=== PATIENT | male | born 1965 | race Caucasian/White ===

== ENCOUNTER 2023-07-21 04:32 | Emergency (ER) | payer OTHER, SELFPAY ==
[2023-07-21 04:34] VITALS: BP 137/77
[2023-07-21 04:56] VITALS: BMI 28.7
[2023-07-21 05:09] LABS: Urine Albumin 1+ (Neg - Trace); Urine Bilirubin Negative (Negative); Urine Character Slightly Cloudy (Clear); Urine Color Brown; Urine Glucose Negative (Negative); Urine Ketone Negative (Negative); Urine Leukocyte Trace (Negative); Urine Nitrite Negative (Negative); Urine Occult Blood 4+ (Negative); Urine Specific Gravity 1.025 (<1.030); Urine Urobilinogen Negative (Neg - 1+)
--- NOTE | 2023-07-21 05:28 | ED.GENMED ---
Addendum entered and electronically signed by ABBI Delgado 07/21/23 10:54:
Pharmacy called pain medication was initially rejected will resend prescription for 10 tablets of Percocet
Original Note:
History of Present Illness
<KELLI Saldaña - Last Filed: 07/21/23 05:43>
General
Chief Complaint: Male Genito-Urinary Symptoms
Source: patient
Exam Limitations: none
Time Seen by Provider: 07/21/23 05:16
Nursing documentation reviewed up to this point in time: agreed with
Travel History
Have you had any contact with someone who has COVID-19?: No
Do you have any symptoms of coronavirus? Fever > 100 degrees, chills, cough, shortness of breath, sore throat, loss of taste or smell, muscle aches, or headache?: No
History of Present Illness
History of Present Illness:
58 y/o M presents to ED complaining of abdominal pain and hematuria. Patient states he woke up at 0100 due to right sided abdominal pain. He states the pain was 8/10 at the time and was radiating to his groin and flank. He states the pain got worse
around 0300. He had an episode of hematuria at 0300. He denies dysuria but states the urine was brown/red and cloudy. He also reports dry heaving around that time. He did not vomit. He reports the pain in his abdomen is now constant and currently
4/10. Patient is having normal BM, last one was yesterday afternoon. He reports having chile for dinner around 1800. Denies vomiting, diarrhea, constipation, headache, cough, congestion, fever or chills. He has no history of GI issues. No recent
surgeries. Patient still have his appendix. Patient had inguinal hernia repair 1 year ago. Patient also has rash on his face that noticed today. Patient does report he has sensitive skin. No reported allergies.
If applicable-neuro sx onset
Onset of symptoms known: Yes
Date of onset of symptoms: 07/21/23
Time of onset of symptoms: 01:00
Past History
<Michellecuong VegasKELLI sal - Last Filed: 07/21/23 05:43>
Past History
ED Past Medical History: Asthma and Other (Left groin hernia); Negative HTN, Hypercholesterolemia or NIDDM
ED Past Surgical History: None
Social History
Tobacco: Former smoker
Alcohol: None
Personal:
Living: with family
Review of Systems
<KELLI Saldaña - Last Filed: 07/21/23 05:43>
Review of Systems
Allergies reviewed?: Yes
All Other Systems: ROS reviewed and negative except as documented in HPI and ROS
Constitutional: Reports no symptoms
EENT: Reports no symptoms
Respiratory: Reports no symptoms
Cardiac: Reports no symptoms
ABD/GI: Reports abdominal pain and nausea
: Reports flank pain, dark urine and other (groin pain)
Musculoskeletal: Reports no symptoms
Skin: Reports no symptoms
Neurological: Reports no symptoms
Endocrine: Reports no symptoms
Hematologic/Lymphatic: Reports no symptoms
Psychiatric: Reports no symptoms
Phy Exam
<MichelleKELLI Mcneil - Last Filed: 07/21/23 05:43>
General Physical Exam
General Presentation: well appearing and no apparent distress
General age: appears stated age
General Skin: warm and dry
General Habitus: normal
General Mental: alert
General Hydration: appears well hydrated
ENT Exam
ENT Exam: EOMI, TM's normal and pharynx normal
Eye Exam
Eye Exam: PERRL, EOMI and conjunctiva normal
Cardiovascular Exam
Cardiovascular Exam: regular rate/rhythm, no edema, no gallop, no murmur and normal peripheral pulses
Pulmonary Exam
Pulmonary Exam: lungs clear, no respiratory distress, no rales, no crackles and no rhonchi
Gastrointestinal Exam
Gastrointestinal Exam: normal bowel sounds, non tender, soft, non distended and no cva tenderness
Neurological Exam
Neurological Exam: alert and oriented x3
Skin Exam
Skin Exam: normal color and warm/dry
Psychiatric Exam
Psychiatric Exam: normal mood/affect
Course
<KELLI Saldaña - Last Filed: 07/21/23 05:43>
Orders/Labs/Results
Orders:
Orders
07/21/23 04:54
Urine Microscopic Reflex Cult Urgent
Urine Reflex Culture from UA [Urinalysis Reflex To Culture] Urgent
Date Specimen was Collected: 07/21/23
Time Specimen was Collected: 04:53
Urine Culture Urgent
SAVI Source: U
Specimen Description:
Date Specimen was Collected: 07/21/23
Time Specimen was Collected: 04:53
07/21/23 05:16
CT Abd/pel Without Iv Or Oral Urgent
Comment:
Reason For Exam: right flank pain, hematuria
07/21/23 06:02
Complete Blood Count/With Diff Urgent
Comprehensive Metabolic Panel Urgent
Abnormal Lab Results
07/21/23 07/21/23
04:54 06:02
RBC 4.37 L 10^6/uL
(4.70-6.10)
MCH 32.7 H pg
(27.0-31.0)
Absolute Neuts (auto) 7.1 H 10^3/uL
(1.4-6.5)
Neutrophils % 76.6 H %
(42.2-75.2)
Lymphocytes % 15.2 L %
(20.5-51.1)
Chloride 110 H mmol/L
(98-107)
Glucose 105 H mg/dl
(70-99)
Total Bilirubin 1.6 H mg/dl
(0.2-1.3)
Ur Occult Blood Reflex 4+ A
(Negative)
Leukocyte Esterase Rfl Trace A
(Negative)
Urine RBC >100 A /HPF
(0-2)
Urine Bacteria (Reflex) Many A
(Negative)
Urine Albumin (Reflex) 1+ A
(Neg - Trace)
07/21/23 06:02
07/21/23 06:02
Vital Signs
Initial and Last Documented VS:
Initial Vital Signs
Temp Pulse Resp BP Pulse Ox
98.2 F 57 16 137/77 98
07/21/23 04:34 07/21/23 04:34 07/21/23 04:34 07/21/23 04:34 07/21/23 04:34
Last Documented Vital Signs
Temp Pulse Resp BP Pulse Ox
98.2 F 57 16 137/77 98
07/21/23 04:34 07/21/23 04:34 07/21/23 04:34 07/21/23 04:34 07/21/23 04:34
<Thuy Becerra, DO - Last Filed: 07/21/23 07:40>
Orders/Labs/Results
Orders:
Orders
07/21/23 04:54
Urine Microscopic Reflex Cult Urgent
Urine Reflex Culture from UA [Urinalysis Reflex To Culture] Urgent
Date Specimen was Collected: 07/21/23
Time Specimen was Collected: 04:53
Urine Culture Urgent
SAVI Source: U
Specimen Description:
Date Specimen was Collected: 07/21/23
Time Specimen was Collected: 04:53
07/21/23 05:16
CT Abd/pel Without Iv Or Oral Urgent
Comment:
Reason For Exam: right flank pain, hematuria
07/21/23 06:02
Complete Blood Count/With Diff Urgent
Comprehensive Metabolic Panel Urgent
Abnormal Lab Results
07/21/23 07/21/23
04:54 06:02
RBC 4.37 L 10^6/uL
(4.70-6.10)
MCH 32.7 H pg
(27.0-31.0)
Absolute Neuts (auto) 7.1 H 10^3/uL
(1.4-6.5)
Neutrophils % 76.6 H %
(42.2-75.2)
Lymphocytes % 15.2 L %
(20.5-51.1)
Chloride 110 H mmol/L
(98-107)
Glucose 105 H mg/dl
(70-99)
Total Bilirubin 1.6 H mg/dl
(0.2-1.3)
Ur Occult Blood Reflex 4+ A
(Negative)
Leukocyte Esterase Rfl Trace A
(Negative)
Urine RBC >100 A /HPF
(0-2)
Urine Bacteria (Reflex) Many A
(Negative)
Urine Albumin (Reflex) 1+ A
(Neg - Trace)
07/21/23 06:02
07/21/23 06:02
Vital Signs
Initial and Last Documented VS:
Initial Vital Signs
Temp Pulse Resp BP Pulse Ox
98.2 F 57 16 137/77 98
07/21/23 04:34 07/21/23 04:34 07/21/23 04:34 07/21/23 04:34 07/21/23 04:34
Last Documented Vital Signs
Temp Pulse Resp BP Pulse Ox
98.2 F 57 16 137/77 98
07/21/23 04:34 07/21/23 04:34 07/21/23 04:34 07/21/23 04:34 07/21/23 04:34
<KELLI Saldaña - Last Filed: 07/21/23 05:43>
MDM/Problems Addressed
Differential Diagnosis Includes:
Nephrolithiasis
Pyelonephritis
UTI
Appendicitis
MDM/Problems Addressed:
58 y/o M with R sided flank pain radiating to groin and back, associated nausea and hematuria. Patient symptoms may be due to kidney stone given presentation of hematuria and flank pain radiating to groin. Pyelo/UTI considered given hematuria and
abdominal pain however patient is not having dysuria or suprapubic tenderness. Appendicitis considered given RLQ pain and nausea.
<Thuy Becerra DO - Last Filed: 07/21/23 07:40>
*Radiology
Radiology exam reviewed: radiology read reviewed
*Pulse Oximetry
Patient hypoxic: no
*Critical Care Note
Total Time (30-74mins, 75-104mins- exclusive of procedures): Not Applicable
ED Attending Note
<KELLI Saldaña - Last Filed: 07/21/23 05:43>
-
Portions of this chart may have been created with voice recognition software.� Occasional wrong word or��sound alike� substitutions may have occurred due to the inherent limitations of voice recognition software.
<Thuy Becerra DO - Last Filed: 07/21/23 07:40>
ED Attending Note
Patient seen and examined by attending physician: Yes
I performed the substantive portion of visit, reviewed & personally made and approve the management plan that is documented in note by myself or ALVARO.: Yes
I performed a history and physical exam of patient and discussed management with resident, I reviewed resident's note and agree with documented findings and plan of care.: Yes
ED Attending Note:
This is a 58-year-old gentleman who resides at home with his . He has history of asthma, osteoarthritis who complains of abrupt onset of right-sided abdominal pain, right flank pain radiating to his right lower quadrant and into his right
testicle that woke him from sleep around 1 AM. Pain was at its worst around 3 AM accompanied with nausea, dry heaves, diaphoresis, restlessness. He admits that at 1 point he was 'rolling around on the bathroom floor'
No history of similar episodes in the past and no improvement with taking Gas-X as well as Pepto-Bismol at home but pain is moderately improved since arrival to the ED. He does admit to an episode of gross hematuria earlier this morning which
prompted ED evaluation. He denies dysuria, denies urinary frequency nor urgency. He denies fever nor chills.
Nausea is currently subsided. He denies diarrhea or constipation.
He has no prior history of kidney stones, no history of UTI nor pyelonephritis.
Prior left inguinal hernia repair. No other abdominal surgical procedures.
GENERAL: 58-year-old gentleman appears his stated age, awake and alert, pleasant, appears in no acute distress. is accompanying.
EYE: anicteric
NECK: Supple, nontender, no meningismus, no significant adenopathy.
ENT: oral mucosa is moist. No rhinorrhea.
CARDIAC: Regular rate and rhythm. no murmur.
LUNGS: Clear breath sounds bilaterally, no acute respiratory distress, no wheezes/rales/rhonchi
ABDOMEN: Soft, nondistended, without focal tenderness, no r/g, no cvat. normoactive BS.
NEUROLOGICAL: Alert and oriented x3, no focal neuro deficits. Gait is steady.
SKIN: Warm and dry, normal color, skin intact. No rash.
MUSCULOSKELETAL: No C/C/E. peripheral pulses are full and equal b/l. No palpable tenderness.
PSYCH: Normal and appropriate interaction.
History and exam most concerning for acute renal colic, concern for ureteric stone. Other consideration is UTI, pyelonephritis.
Patient has been offered pain medication which she currently declines.
Will check CT abdomen and pelvis. Will check laboratory studies as well as urinalysis with reflex to culture.
07/21/2023 0721 AM
Patient remains comfortable, for the most part pain-free but does admit to intermittent mild twinges of pain. Has not required pain medication in the ED. however due to these intermittent twinges will give an IV dose of Toradol now.
CAT scan shows a 2.5 mm stone proximal right ureter with minimal hydronephrosis. There are additional small nonobstructing stones bilaterally.
Labs are essentially unremarkable.
Normal renal function.
Minimally elevated bilirubin 1.6 but all other LFTs within normal limits. CAT scan does note mild diffuse hepatic steatosis but gallbladder, bile ducts and pancreas appear normal.
There is an incidental 1.6 cm adenoma left adrenal gland and 4 mm cyst in the spleen.
Urinalysis shows greater than 100 RBCs, many bacteria but appears to be contaminated specimen with greater than 30 squamous epithelial cells and only 6-10 WBCs. Patient has had no UTI symptoms. I suspect bacteria is contaminant and not consistent
with UTI.
Will hold off on antibiotic and instead await urine culture.
Will discharge to home with prescription for oral Toradol for as needed pain, small prescription for Percocet for as needed moderate to severe pain as well as Zofran for as needed nausea.
Discussed importance of remaining well-hydrated on a daily basis.
Will discharge with urine strainer.
Will refer to urology for follow-up.
Return precautions discussed.
Discharge Plan
Departure
Patient Disposition: Home (Routine Discharge)
Date of Disposition: 07/21/23
Time of Disposition: 07:25
Patient with high blood pressure during this ER visit?: No
Condition: Good
Discharge Problem:
Calculus of proximal right ureter
Instructions: How to Strain Your Urine, Kidney Stone Diet, Kidney Stone, Adult ED
Prescriptions:
New
ketorolac 10 mg tablet
10 mg PO Q8H 5 Days Qty: 15 0RF
oxycodone-acetaminophen [Percocet] 5-325 mg Tablet
1 tab PO Q4HPRN PRN (Reason: pain) Qty: 10 0RF
ondansetron 4 mg tablet,disintegrating
4 mg PO QID PRN (Reason: nausea and vomiting) Qty: 20 0RF
No Action
montelukast 10 MG tablet
10 mg PO PRN PRN (Reason: allergies)
trazodone 50 MG tablet
50 mg PO HSPRN PRN (Reason: sleep)
gabapentin 100 MG capsule
100 mg PO PRN PRN (Reason: Nerve Pain)
Asmanex HFA 13 GM HFA aerosol inhaler
2 puff inhalation PRN PRN (Reason: SOB, Allergies)
Epidiolex 1 UNIT solution
0 unit inhalation PRN PRN (Reason: sleep, pain)
ibuprofen 200 MG tablet
400 - 600 mg PO Q6HPRN PRN (Reason: moderate pain) Qty: 1 0RF
levothyroxine 137 mcg Tablet
137 mcg PO DAILY
Referrals:
Kristel Rosario CRNP [Family Provider] -
Boaz Akers Jr., MD [Active] - Call in 1-3 days for appt
Interventions
Interventions:
*Risk Screen - Suicide Last Done: 07/21/23 04:42
*General Assessment Last Done: 07/21/23 04:34
*Neglect/Abuse Screening Last Done: 07/21/23 04:34
ED- Fall Risk Assessment Last Done: 07/21/23 05:00
*ED COVID-19 Vaccine History Last Done: 07/21/23 04:34
ED-Male Genitourinary Assessment Last Done: 07/21/23 04:55
[2023-07-21 05:43] LABS: Urine Amorphous Seen; Urine Bacteria Many (Negative); Urine Mucus Many; Urine Red Blood Cell >100 /HPF (0-2); Urine Squamous Cell >30 /LPF (Few)
[2023-07-21 06:13] LABS: % Basophils 0.4 % (0-2); % Eosinophils 1.4 % (0-6); % Immature Granulocytes 0.2 % (0-0.5); % Lymphocytes 15.2 % (20.5-51.1); % Monocytes 6.2 % (1.7-9.3); % Neutrophils 76.6 % (42.2-75.2); Absolute Eosinophils 0.1 10^3/uL (0-0.7); Absolute Lymphocytes 1.4 10^3/uL (1.2-3.4); Absolute Monocytes 0.6 10^3/uL (0.1-0.6); Absolute Neutrophils 7.1 10^3/uL (1.4-6.5); Hematocrit 40.1 % (39.0-52.0); Hemoglobin 14.3 g/dL (13.0-18.0); Mean Corp Hgb Conc. 35.7 g/dL (33.0-37.0); Mean Corpuscular Hgb 32.7 pg (27.0-31.0); Mean Corpuscular Volume 91.8 fL (80.0-94.0); Mean Platelet Volume 8.9 fL (7.4-10.4); Nucleated Red Blood Cells % 0 % (-); Platelet Count 272 10^3/uL (130-400); Red Blood Cell Count 4.37 10^6/uL (4.70-6.10); Red Cell Dist. Width 12.8 % (11.5-14.5); White Blood Cell Count 9.3 10^3/uL (4.8-10.8)
[2023-07-21 06:26] LABS: ALT (SGPT) 18 U/L (0-50); AST (SGOT) 22 U/L (17-59); Albumin 4.1 g/dl (3.5-5.0); Alkaline Phosphatase 60 U/L (38-126); Blood Urea Nitrogen 18 mg/dl (9-20); Calcium 9.2 mg/dl (8.4-10.2); Carbon Dioxide 24 mmol/L (22-30); Chloride 110 mmol/L (98-107); Estimated Creatinine Clearance 98 ml/min; Glucose 105 mg/dl (70-99); Potassium 4.1 mmol/L (3.5-5.1); Sodium 138 mmol/L (135-145); Total Bilirubin 1.6 mg/dl (0.2-1.3); Total Protein 6.6 g/dl (6.3-8.2); eGFR > 60.00
[2023-07-21 07:52] VITALS: BP 109/80
[2023-07-21] MEDS: TORADOL 30 MG IV (07:53)
== END 2023-07-21 08:46 | disposition home or self-care (01) ==
LOC: EMR 04:32
PROVIDERS: EMERGENCY PHYSICIAN Emergency Medicine; FAMILY PHYSICIAN Nurse Practitioner Family
DX: R10.9 Unspecified abdominal pain (principal); R31.9 Hematuria, unspecified; J45.909 Unspecified asthma, uncomplicated; N13.6 Pyonephrosis; Z87.891 Personal history of nicotine dependence; Z98.890 Other specified postprocedural states
CPT/HCPCS: 99284; 96374; 74176; 80053; 81003; 81015; 85025; 87086

== ENCOUNTER 2023-07-29 05:16 | Emergency (ER) | payer OTHER, SELFPAY ==
[2023-07-29 05:20] VITALS: BP 136/92
[2023-07-29] MEDS: LET TOPICAL ANESTHETIC GEL 3 ML TOPICAL (06:23)
--- NOTE | 2023-07-29 06:24 | ED.SKININJ ---
HPI-Injury
General
Chief Complaint: Bite
Source: patient
Exam Limitations: none
Time Seen by Provider: 07/29/23 06:14
Nursing documentation reviewed up to this point in time: agreed with
Travel History
Have you had any contact with someone who has COVID-19?: No
Do you have any symptoms of coronavirus? Fever > 100 degrees, chills, cough, shortness of breath, sore throat, loss of taste or smell, muscle aches, or headache?: No
History of Present Illness-Injury
Is this injury a work related problem?: No
Is pt an associate of [facility]?: No
Initial Injury comments:
58 male dog bite to the left eye just prior to arrival breaking up a fight between his domesticated dogs, dogs have the shots go to the vet's, he able to see out of his eye
Past History
Past History
ED Past Medical History: Asthma and Other (Left groin hernia); Negative HTN, Hypercholesterolemia or NIDDM
ED Past Surgical History: None
Social History
Tobacco: Former smoker
Alcohol: None
Personal:
Living: with family
Review of Systems
Review of Systems
All Other Systems: Not applicable
EENT: Reports other (Flap laceration left lateral eyelid)
Endocrine: Reports no symptoms
Hematologic/Lymphatic: Reports no symptoms
Phy Exam
Physical Exam
Physical Exam:
Physical Exam
General: no apparent distress, not acutely ill
Neck: 3 cm flap laceration just lateral to the lateral canthus tarsal plate appears intact
Heart: s1/s2 regular rate and rhythm, no murmur. equal radial pulses.
Lungs: no acute respiratory distress.
Neuro: alert and oriented. no focal neurological deficits
Skin: no rash
Psychiatric: well kept. interactive and cooperative
Extremities: no edema.
Course
Orders/Labs/Results
Orders:
Orders
07/29/23 06:19
Lidocaine/Epinephrine/Tetracai [Let Topical Anesthetic Gel] 3 ml .ROUTE .STK-MED ONE
07/29/23 06:22
Lidocaine/Epinephrine/Tetracai [Let Topical Anesthetic Gel] 3 ml TOPICAL NOW STA
07/29/23 07:00
Doxycycline [Vibramycin] 100 mg PO NOW STA
07/29/23 07:02
Visual Acuity- Treatment ONCE
Vital Signs
Initial and Last Documented VS:
Initial Vital Signs
Temp Pulse Resp BP Pulse Ox
98.0 F 76 20 136/92 98
07/29/23 05:20 07/29/23 05:20 07/29/23 05:20 07/29/23 05:20 07/29/23 05:20
Last Documented Vital Signs
Temp Pulse Resp BP Pulse Ox
98.0 F 76 20 136/92 98
07/29/23 05:20 07/29/23 05:20 07/29/23 05:20 07/29/23 05:20 07/29/23 05:20
MDM/Problems Addressed
Differential Diagnosis Includes:
Laceration injury orbital corneal issue, abrasion, tarsal plate issue
MDM/Problems Addressed:
Dog bite
Chronic conditions affecting care:
Amoxicillin allergy
*Pulse Oximetry
Patient hypoxic: no
*Critical Care Note
Total Time (30-74mins, 75-104mins- exclusive of procedures): Not Applicable
Update Note
Update Note:
Up-to-date reviewed recommend Doxy or Levaquin plus Flagyl-inpatient with documented pen allergy
On second review looks like it goes through the lateral canthus on-call plastic surgery notified will send the patient to the office
ED Attending Note
-
Portions of this chart may have been created with voice recognition software.� Occasional wrong word or��sound alike� substitutions may have occurred due to the inherent limitations of voice recognition software.
Discharge Plan
Departure
Instructions: Animal and human bites, Wound Care (DC), Laceration Repair With Stitches (DC)
Prescriptions:
New
doxycycline monohydrate 100 mg capsule
100 mg PO BID Qty: 10 0RF
metronidazole 500 mg tablet
500 mg PO TID Qty: 14 0RF
No Action
montelukast 10 MG tablet
10 mg PO PRN PRN (Reason: allergies)
trazodone 50 MG tablet
50 mg PO HSPRN PRN (Reason: sleep)
gabapentin 100 MG capsule
100 mg PO PRN PRN (Reason: Nerve Pain)
Asmanex HFA 13 GM HFA aerosol inhaler
2 puff inhalation PRN PRN (Reason: SOB, Allergies)
Epidiolex 1 UNIT solution
0 unit inhalation PRN PRN (Reason: sleep, pain)
ibuprofen 200 MG tablet
400 - 600 mg PO Q6HPRN PRN (Reason: moderate pain) Qty: 1 0RF
levothyroxine 137 mcg Tablet
137 mcg PO DAILY
ketorolac 10 mg tablet
10 mg PO Q8H 5 Days Qty: 15 0RF
oxycodone-acetaminophen [Percocet] 5-325 mg Tablet
1 tab PO Q4HPRN PRN (Reason: pain) Qty: 10 0RF
ondansetron 4 mg tablet,disintegrating
4 mg PO QID PRN (Reason: nausea and vomiting) Qty: 20 0RF
oxycodone-acetaminophen [Percocet] 5-325 mg tablet
1 tab PO Q6HPRN PRN (Reason: pain) Qty: 10 0RF
Referrals:
Gavi Gross MD [Family Provider] -
Jaydon Aguilera DO [Active] - Next open appointment (Go to the office today)
Interventions
Interventions:
*Risk Screen - Suicide Last Done: 07/29/23 05:20
*General Assessment Last Done: 07/29/23 05:20
*Neglect/Abuse Screening Last Done: 07/29/23 05:20
ED- Fall Risk Assessment Last Done: 07/29/23 05:20
*ED COVID-19 Vaccine History Last Done: 07/29/23 05:20
ED-Skin Assessment Last Done: 07/29/23 07:06
[2023-07-29] MEDS: VIBRAMYCIN 100 MG PO (07:04)
[2023-07-29 07:43] VITALS: BP 129/84
== END 2023-07-29 07:44 | disposition home or self-care (01) ==
LOC: EMR 05:16
PROVIDERS: EMERGENCY PHYSICIAN Emergency Medicine; FAMILY PHYSICIAN Internal Medicine
DX: S01.112A Laceration without foreign body of left eyelid and periocular area, initial encounter (principal); W54.0XXA Bitten by dog, initial encounter; Z87.891 Personal history of nicotine dependence; Z88.0 Allergy status to penicillin
CPT/HCPCS: 99283

== ENCOUNTER → 2023-08-19 15:14 | Outpatient (REF) | payer OTHER, SELFPAY | LOC: RAD 15:14 | PROVIDERS: ATTENDING PHYSICIAN Specialist; FAMILY PHYSICIAN Internal Medicine | DX: S05.50XA Penetrating wound with foreign body of unspecified eyeball, initial encounter (principal) | CPT/HCPCS: 70030 ==

== ENCOUNTER → 2023-09-09 14:56 | Outpatient (REF) | payer OTHER, SELFPAY | LOC: HWRAD 14:56 | PROVIDERS: ATTENDING PHYSICIAN Specialist; FAMILY PHYSICIAN Internal Medicine | DX: N20.1 Calculus of ureter (principal) | CPT/HCPCS: 74176 ==

== ENCOUNTER → 2024-06-25 07:19 | Outpatient (REF) | payer OTHER, SELFPAY ==
[2024-06-25 08:16] LABS: Blood Urea Nitrogen 14 mg/dl (9-20); Calcium 9.2 mg/dl (8.4-10.2); Carbon Dioxide 29 mmol/L (22-30); Chloride 102 mmol/L (98-107); Glucose 100 mg/dl (70-99); Potassium 4.8 mmol/L (3.5-5.1); Sodium 138 mmol/L (135-145); eGFR > 60.00
[2024-06-25 08:53] LABS: % Basophils 0.6 % (0-2); % Eosinophils 5.6 % (0-6); % Immature Granulocytes 0.4 % (0-0.5); % Monocytes 12.6 % (1.7-9.3); % Neutrophils 66.8 % (42.2-75.2); Absolute Eosinophils 0.4 10^3/uL (0-0.7); Absolute Monocytes 0.9 10^3/uL (0.1-0.6); Absolute Neutrophils 4.8 10^3/uL (1.4-6.5); Hematocrit 41.4 % (39.0-52.0); Hemoglobin 14.2 g/dL (13.0-18.0); Mean Corp Hgb Conc. 34.3 g/dL (33.0-37.0); Mean Corpuscular Hgb 31.5 pg (27.0-31.0); Mean Corpuscular Volume 91.8 fL (80.0-94.0); Mean Platelet Volume 8.7 fL (7.4-10.4); Nucleated Red Blood Cells % 0 % (-); Platelet Count 261 10^3/uL (130-400); Red Blood Cell Count 4.51 10^6/uL (4.70-6.10); Red Cell Dist. Width 13.1 % (11.5-14.5); White Blood Cell Count 7.2 10^3/uL (4.8-10.8)
== END ==
LOC: REG 07:19
PROVIDERS: ATTENDING PHYSICIAN Specialist
DX: Z01.818 Encounter for other preprocedural examination (principal)
CPT/HCPCS: 36415; 80048; 85025; 93005